=== PATIENT | female | born 1985 | race Caucasian/White ===

== ENCOUNTER 2023-02-18 01:08 | Day surgery (SDC) | payer BC, OTHER, SELFPAY ==
--- NOTE | 2023-02-07 15:55 | PC.NURSE ---
Report to the Outpatient Waiting Room, entrance under the green pavilion located off [facility], at time 0600 on date 02/18/23. Planned Procedure Time: 0730. Time changes happen often and if your time is changed the preop area will call you the afternoon before. - You and your visitor will be asked to self-screen and do not enter if you have any COVID symptoms. - A mask is optional within the hospital at this time. Patients may have clear liquids (water, carbonated beverages, clear teas, apple juice) until 3 hours prior to surgery with a maximum of 20 ounces. 0430 - No food from midnight until time of surgery - Infants may have breast milk until 4 hours before surgery, formula 6 hours prior to surgery. - Children will be allowed to drink immediately following surgery. If applicable, please bring a bottle or sippy cup to assist with drinking. Juice, water, soda, and popsicles are readily available. For infants on formula, please bring formula the day of surgery. Pacifiers are allowed. Take the following medications with a SIP of water the morning of surgery: lexapro, xanax DO NOT STOP ANY OF YOUR OTHER PRESCRIPTION MEDICATIONS PRIOR TO SURGERY ?EXCEPT THE FOLLOWING Medications to discontinue per physician VITAMINS & ASK YOUR SURGEON REGARDING STOPPING EXCEDRIN AND IBUPROFEN PRIOR TO SURGERY Date to take last dose 02/15/23- VITAMIN B, ASK YOUR SURGEON REGARDING STOPPING EXCEDRIN AND IBUPROFEN PRIOR TO SURGERY Please no make-up, nail english, hairspray, perfume, deodorant, or body powder the day of surgery. No jewelry (including any body piercings) or valuables the day of surgery, leave them at home. Please take a shower or bath the night before, or the morning of, surgery with an antibacterial soap. Wear comfortable, loose fitting clothing. Children are encouraged to wear pajamas. - Jewelry must be removed prior to entering the operating room. Rings and piercings that are not removed may be cut off. - The hospital will not accept responsibility for valuables. - Please leave all valuables, including medications, at home the day of surgery. If you are going home after surgery, a licensed motor bus driver must drive you home. - NO public transportation without another adult if you receive anesthesia. - We recommend that an adult stay with you for 24 hours following discharge. - We also recommend that you do not drive, make important decision, drink alcoholic beverages, or take any drugs that were not prescribed by your health care provider for at least 24 hours after your discharge time. For Pediatric surgeries, we recommend two adults accompany the child home. Follow any additional instructions given to you from your surgeon. If you or anyone in your household have experienced Covid symptoms in the past week, please notify your surgeon or the nurse liaison at the phone number below for possible testing. Telephone instructions given to PATIENT- JOSE SIMPSON and asked if any additional questions and then verbalized understanding. Patient advised to call surgeon office or pre surgery nurse liaison [phone] if any additional questions.
[2023-02-07 16:03] VITALS: BMI 29.2
[2023-02-18] VITALS (11 sets, daily range): BP systolic 95–141; BP diastolic 51–90; PULSE 64–98; RESP 14–20; TEMP 36.2–36.5; O2SAT 97–100; BMI 30.4
[2023-02-18] MEDS: LACTATED RINGERS 1,000 ML 30 ML IV CONT ×2 (06:45→08:40)
[2023-02-18] MEDS: GABAPENTIN 300 MG CAPSULE PO (06:55)
[2023-02-18] MEDS: ACETAMINOPHEN 500 MG TABLET 1000 MG PO (06:55)
[2023-02-18] MEDS: SCOPOLAMINE 1.5 MG PATCH TRANSDERM (06:56)
--- NOTE | 2023-02-18 06:56 | WPDANESEPPF ---
Anes - Initial Pre Proc Eval Procedure: Operation Date: 02/18/23 07:30 Proposed Procedures p Diagnostic Laparoscopy, Bilateral Laparoscopic Salpingectomy - Kylie Rodríguez DO s Hysteroscopy Dilation and Curettage Novasure Endometrial Ablation - Kylie Rodríguez DO Date/Time: 02/18/23 06:56 Surgeon: Kylie Rodríguez DO Pre Op Diagnosis: desires sterilization, abnormal uterine bleeding Patient Data Age: 37 Gender: F Height: 1.63 m Weight: 77.2 kg Allergies Allergy/AdvReac Type Severity Reaction Status Date / Time cephalexin Allergy Unknown Hives Verified 02/07/23 15:40 Iodine and Iodide Containing Allergy Unknown Anaphylaxis Verified 02/07/23 15:40 Produc morphine Allergy Unknown Swelling Verified 02/07/23 15:40 of Lip/Tongue/Throat Penicillins Allergy Unknown Hives Verified 02/07/23 15:40 levofloxacin [From Levaquin] Allergy Hives Verified 02/07/23 15:40 Home Medications Medication Instructions Recorded Confirmed Type B Complex-Vitamin B12 1 tab-cap PO DAILY 02/07/23 02/07/23 History Excedrin Migraine 2 tab-cap PO BID 02/07/23 02/07/23 History alprazolam 0.5 mg tablet 0.5 mg PO TID PRN Anxiety 02/07/23 02/07/23 History escitalopram oxalate 20 mg tablet 20 mg PO DAILY 02/07/23 02/07/23 History ibuprofen 800 mg PO Q6H PRN Pain 02/07/23 02/07/23 History Patient hx anesthesia problems: none Family hx anesthesia problems: none Results Review: All pre-operative results and documents have been reviewed as part of the pre-operative evaluation. [facility] Past Medical History Medical History Overweight Smoker Surgical History Surgical History (Updated 02/18/23 @ 06:56 by Yo Thompson MD) History of section Family History Family History Father Hypertension Family history of elevated blood lipids Mother Family history of elevated blood lipids Social History Social History Smoking status: Never smoker Spiritual care concerns: No Anes - Eval Final PreProcedure Day of Procedure 02/18/23 06:56 Patient weight: overweight Heart: regular rate and rhythm Lungs: clear to auscultation Airway: Mallampati scale class II Neurological: alert and oriented Last oral intake: >/= 8 hours ASA classification: III Emergent: no Anesthetic plan: proceed Anesthesia type and monitoring: general ETT and standard monitoring Results Review: All pre-operative results and documents have been reviewed as part of the pre-operative evaluation. Informed Consent: The patient's anesthetic plan and its attendant risks and benefits were discussed with the patient/family/POA. Questions were solicited and answers provided to the satisfaction of the patient/family/POA.
--- NOTE | 2023-02-18 07:13 | P.HP_ITS ---
H&P: HPI History of Present Illness Date/Time: 02/18/23 07:13 Chief Complaint: I'm here for my surgery Narrative: Yasemin presents with heavy, abnormal uterine bleeding and desiring permanent sterilization. She requests diagnostic laparoscopy, bilateral salpingectomy, hysteroscopy, D&C, Novasure ablation. Review of Systems Review of Systems: All systems reviewed & are unremarkable except as noted in HPI and below Constitutional: Constitutional: Reports as per HPI and Reports no additional constitutional complaints [facility] Past Medical History Medical History Overweight Smoker Surgical History Surgical History (Updated 02/18/23 @ 06:56 by Yo Thompson MD) History of section Family History Family History Father Hypertension Family history of elevated blood lipids Mother Family history of elevated blood lipids Social History Social History Smoking status: Never smoker Spiritual care concerns: No Meds Home Medications and Allergies Home Medications Medication Instructions Recorded Confirmed Type B Complex-Vitamin B12 1 tab-cap PO DAILY 02/07/23 02/18/23 History Excedrin Migraine 2 tab-cap PO BID 02/07/23 02/18/23 History alprazolam 0.5 mg tablet 0.5 mg PO TID PRN Anxiety 02/07/23 02/07/23 History escitalopram oxalate 20 mg tablet 20 mg PO DAILY 02/07/23 02/07/23 History ibuprofen 800 mg PO Q6H PRN Pain 02/07/23 02/18/23 History Allergies Allergy/AdvReac Type Severity Reaction Status Date / Time cephalexin Allergy Unknown Hives Verified 02/18/23 07:11 Iodine and Iodide Containing Allergy Unknown Anaphylaxis Verified 02/18/23 07:11 Produc morphine Allergy Unknown Swelling Verified 02/18/23 07:11 of Lip/Tongue/Throat Penicillins Allergy Unknown Hives Verified 02/18/23 07:11 levofloxacin [From Levaquin] Allergy Hives Verified 02/18/23 07:11 Exam Const: General: comfortable and no acute distress Eyes: General: appearance normal, both eyes and all related structures Resp: Effort & Inspection: normal respiratory effort Auscultation: clear to auscultation bilaterally Cardio: Rate: regular rate Rhythm: regular rhythm GI: GI Palp: Yes Soft to palpation Auscultation: normal bowel sounds Skin: General skin exam: normal color and no rashes or lesions noted Psych: Mental Status: mental status grossly normal Affect: Anxious affect present Assessment and Plan Assessment and plan (1) Sterilization: Code(s): Z30.2 - Encounter for sterilization Status: Acute (2) Abnormal uterine bleeding: Code(s): N93.9 - Abnormal uterine and vaginal bleeding, unspecified Status: Acute Plan Diagnostic laparoscopy, bilateral salpingectomy, hysteroscopy, D&C, Novasure ablation.
--- NOTE | 2023-02-18 07:13 | WPDHPUPDATE1 ---
History and Physical Update Update Date/Time: 02/18/23 07:13 History and Physical has been reviewed, including an updated exam of the patient. There are NO changes in the patient's condition. Risks, benefits, and alternatives have been discussed and questions answered. Patient agrees to proceed with procedure.
[2023-02-18] MEDS: BUPivacaine HCL 0.25% PF 10 ML VIAL INFILTRATE (08:05)
[2023-02-18] MEDS: KETOROLAC 30 MG/ML VIAL (*BKC) IV PUSH (08:06)
--- NOTE | 2023-02-18 08:25 | SUR.OPER ---
Novasure settings, length 4.4, width 2.5 time 90 seconds
--- NOTE | 2023-02-18 08:38 | W.PM.PROC2 ---
Procedure Note - Detailed Date of Procedure 02/18/23 Pre-op Diagnosis desires sterilization, abnormal uterine bleeding Post-op Diagnosis Same Procedure Performed Diagnostic laparoscopy, bilateral salpingectomy. Hysteroscopy, D&C, Novasure ablation Surgeon Kylie Rodríguez, DO Anesthesia General Indications AUB, desires sterilization Findings Normal vulva and vaginal canal. Small cervix. Midplane uterus. Both tubal ostia visualized. Uterus sounded to 8cm. Cervix was 2.5 cm. Endometrial length 5.5 cm, width 2.5 cm. Novasure power 76 márquez for 70 seconds. Internally, the liver, gallbaldder, stomach and intestines appeared normal. The uterus, tubes and ovaries appeared normal. there was a hemorrhagic cyst on the right ovary. There was a moderate-sized ventral hernia between the rectus muscles distal to the umbilicus. There was a single omental adhesion just lateral to this. Description of Procedure Patient was taken to the operating room where she was placed under general anesthesia. She was prepped and draped in the normal sterile fashion in a dorsal lithotomy position. No antibiotics were indicated. A time-out was performed. A speculum was placed in the vagina and the cervix was visualized. Posterior lip of the cervix was grasped with a single-tooth tenaculum. The uterus was sounded to accompany a disposable uterine manipulator. The manipulator was placed, the speculum and tenaculum were removed. Gloves were changed and attention was turned to the abdomen. The skin above the umbilicus was grasped with 2 penetrating towel clamps and the area was injected with local. A small incision was made and a Veress needle was introduced. The saline water drop test was performed to confirm intraperitoneal placement. Once this was successful, CO2 insufflation was started and the abdomen was brought to a filling pressure of 15 mmHg. The Veress needle was then replaced with a 5 mm Optiview trocar. Insertion revealed no evidence of bowel or vascular injury upon entry. The patient was then placed in steep Trendelenburg position. Additional port sites in the right and left lower quadrants were identified, injected and incised. Survey of the abdomen and pelvis revealed the above-mentioned findings. The omental adhesion was taken down using the LigaSure. The right tube was then elevated and was cauterized and transected off using the LigaSure. It was passed off through the paralegal assistant port. The right ovarian cyst was drained and old bloody fluid was noted. The fluid was then suctioned out of the pelvic cavity. The left tube was then removed in the same fashion and was passed off. The pedicles were reinspected and found to be hemostatic. Pelvis was copiously irrigated and all fluid was suctioned out. The instruments and trocars removed and the CO2 gas was allowed to escape. The abdominal incisions were closed with 4-0 Monocryl in a subcuticular fashion. I then turned to the hysteroscopy portion of the procedure. The uterine manipulator was removed and a speculum was placed in the vagina. The posterior cervix was regrasped with a single-tooth tenaculum. The Scholastica hysteroscopy system was introduced and a survey of the cavity was performed. The endometrial cavity was normal in shape and contour. Measurements were taken. The hysteroscope was then removed. A thorough curettage of the entire cavity was performed. The NovaSure was then introduced and the cavity check was performed. This was successful and the ablation was performed at 76 w for approximately 70 seconds. The device was then retracted into the catheter and was removed. The tenaculum site was bleeding so compression and silver nitrate were used to make it hemostatic. Once this was accomplished, the speculum was removed. The patient was taken to the recovery room in stable condition. All instrument and sponge counts were correct at the conclusion of the procedure. Estimated Blood Loss 10 Drains N
[2023-02-18] MEDS: fentaNYL CITRATE INJ (*CRX) 100 MCG/2 ML VIAL 25 MCG IV PUSH ×4 (09:33→09:44)
[2023-02-18] MEDS: MIDAZOLAM HCL (*CRX) 2 MG/2 ML VIAL IV PUSH (10:18)
[2023-02-18] MEDS: diazePAM (*CRX) 5 MG TABLET PO (11:21)
== END 2023-02-18 11:29 | disposition home or self-care (01) ==
PROVIDERS: PCP Family Medicine; Visit Provider Obstetrics & Gynecology Gynecologic Oncology
PROC: (CPT 49320; principal; 2023-02-18 07:30)
PROC: 0U5B8ZZ Destruction of Endometrium, Via Natural or Artificial Opening Endoscopic (ICD-10-PCS; CPT 58563; 2023-02-18 07:30)
DX: Z30.2 Encounter for sterilization (principal); N93.9 Abnormal uterine and vaginal bleeding, unspecified; N83.201 Unspecified ovarian cyst, right side; K43.9 Ventral hernia without obstruction or gangrene; N73.6 Female pelvic peritoneal adhesions (postinfective)
CPT/HCPCS: 58661; 58563; 88302; 88305; A9270; J1885; J2250; J3010; J7120